=== PATIENT | female | born 1955 | race African-American/Black ===

== ENCOUNTER → 2019-04-24 | Day surgery (SDC) | payer MEDICARE ==
[2019-04-18 15:11] LABS: BASOPHILS # (AUTO) 0.1 (0.0-0.1); BASOPHILS % 0.8 % (0.0-1.0); EOSINOPHILS # (AUTO) 0.1 (0.0-0.4); EOSINOPHILS % 1.7 % (0.0-6.0); HEMATOCRIT 40.6 % (34.2-44.1); HEMOGLOBIN 12.9 g/dL (12.0-16.0); LYMPHOCYTES # (AUTO) 2.6 (1.0-3.2); LYMPHOCYTES % 40.5 % (18.0-39.1); MEAN CORPUSCULAR HEMOGLOBIN 28.9 pg (28-32); MEAN CORPUSCULAR HGB CONC 31.8 g/dL (31-35); MEAN CORPUSCULAR VOLUME 90.8 fL (81-99); MONOCYTES # (AUTO) 0.4 (0.2-0.8); MONOCYTES % 6.2 % (4.4-11.3); NEUTROPHILS # (AUTO) 3.2 (2.1-6.9); NEUTROPHILS % 50.6 % (38.7-80.0); PLATELET COUNT 209 x10e3/uL (140-360); RED BLOOD COUNT 4.47 x10e6/uL (3.6-5.1); RED CELL DISTRIBUTION WIDTH 14.4 % (11.7-14.4)
[~2019-04-24] MED LIST: ADVAIR 250-501 EACH INH; ASPIRIN81 MG PO; ATORVASTATIN CA20 MG PO; FENTANYL CITRATE/PF 100MCG/2 ML INJ ONE; FUROSEMIDE40 MG PO; LIDOCAINE HCL 2% LOCAL INJ 5 ML SDV VIAL INJ ONE; LISINOPRIL2.5 MG PO; METOPROLOL SUCC25 MG PO; MIDAZOLAM HCL 2 MG/2 ML VIAL ONE; MONTELUKAST SOD10 MG PO; OMEPRAZOLE40 MG PO; POTASSIUM CHLO10 ME1 PO; PROPOFOL IV EMULSION 10 MG/ML 20 ML VIAL ONE; PROVENTIL HFA6.7 GM INH
--- OUTSIDE RECORDS SUMMARY | 2019-04-24 05:22 | XMS REPORT ---
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 Allergies, Adverse Reactions, Alerts Allergy Name Allergy Type Status Severity Reaction(s) Onset Date Inactive Date Treating Clinician Comments No Known Allergies DA Active U 2018-06-08 00:00:00 No Known Allergies DA Active U 2015-02-02 00:00:00 Medications This patient has no known medications. Encounters Start Date/Time End Date/Time Encounter Type Admission Type Attending [facility] Facility Care Department Encounter ID 2019-04-29 00:00:00 2019-04-29 00:00:00 Outpatient [facility] [id number] 2019-02-17 09:49:11 2019-02-17 09:49:11 Outpatient [facility] [id number] 2019-02-17 00:00:00 2019-02-17 00:00:00 Outpatient [facility] [id number] 2019-02-07 00:00:00 2019-02-07 00:00:00 Outpatient [facility] [id number] 2019-02-07 00:00:00 2019-02-07 00:00:00 Outpatient [facility] [id number] 2019-01-30 12:26:47 2019-01-30 12:26:47 Outpatient [facility] [id number] 2019-01-27 14:59:13 2019-01-27 14:59:13 Outpatient [facility] [id number] 2019-01-27 14:42:03 2019-01-27 14:42:03 Outpatient [facility] [id number] 2019-01-27 13:23:05 2019-01-27 13:23:05 Outpatient [facility] [id number] 2019-01-27 00:00:00 2019-01-27 00:00:00 Outpatient [facility] [id number] 2018-09-19 00:00:00 2018-09-19 00:00:00 Outpatient [facility] [id number] 2018-09-18 11:07:29 2018-09-18 11:07:29 Outpatient [facility] [id number] 2018-05-21 12:43:03 2018-05-21 12:43:03 Outpatient [facility] [id number] 2018-03-28 15:47:25 2018-03-28 15:47:25 Outpatient [facility] [id number] Results Test Description Test Time Test Comments Text Results Atomic Results Result Comments SCR MAMM BILATERAL JULIA CAD DIGITAL 2019-03-06 15:58:22 - SCR MAMM BILATERAL JULIA CAD DIGITALBILATERAL DIGITAL SCREENING MAMMOGRAM 3D/2D WITH CAD: 02/14/2019CLINICAL: Asymptomatic. Digital breast tomosynthesis was performed in addition to routine CC and MLO views. Current mammographic images were evaluated by either a [employer]u or a [employer] CAD (computer aided detection system). No prior exams are currently available for comparison. The tissue of both breasts is heterogeneously dense. This may lower the sensitivity of mammography. A benign-appearing subcentimeter mass is noted in the left breast upper outer quadrant 11 cm from the nipple.There are benign intramammary nodes in both breasts. There also are benign calcifications in the right breast and minimal vascular calcification in the left breast. No suspicious architectural distortion, malignant type calcification, or lymph node abnormality detected. IMPRESSION: INCOMPLETE ASSESSMENT: ADDITIONAL IMAGING EVALUATION RECOMMENDEDPrior exams are currently unavailable for stability assessment. An addendum will be issued if/when prior outside exams are made available for comparison.Pennding receipt and review of prior outside exams, breast ultrasound is recommended for further evaluation.Wali Nelson M.D. rb/:03/06/2019 15:58:22 Fire Truck Driver: Antonia MACIAS, [facility]-FWletter sent: Additional Imaging Mammogram BI-RADS: 0 Indeterminate SCR MAMM BILATERAL JULIA CAD DIGITAL 2019-03-06 15:58:22 AMENDMENT: 03/27/2019 Wali Nelson M.D. [facility] has obtained the mammograms of 01/27/2019, 11/13/2017, and 07/28/2016 for comparison.Allowing for technical differences, the breasts have not significantly changed.No mammographic evidence of malignancy.Resume screening mammography in February 2020.At the time of the exam, it was not known that the patient had had a mammogram elsewhere on 01/27/2019.Amended BI-RADS: 2 Benign letter sent: Normal Comparison Completed
--- OUTSIDE RECORDS SUMMARY | 2019-04-24 05:23 | XMS REPORT | Encounter Summary ---
Author Organization Unknown Address [address] [place] [id number] Phone [phone] Care Team Providers Care Dust Mixer Name Role Phone Dr. Baldo Guevara 3 [phone] Reason for Visit heartburn/indigestion Instructions 1. Body mass index 40+ - severely obese body mass index: care instructions learning about healthy weight 2. Severe obesity 3. Screening for malignant neoplasm of breast MAMMO, screening, digital, bilateral - PLEASE CALL PATIENT TO SCHEDULE 4. Screening for malignant neoplasm of colon colonoscopy referral 5. Coronary arteriosclerosis in [place] artery furosemide 40 mg tablet potassium chloride ER 10 mEq tablet,extended release(part/cryst) Toprol XL 25 mg tablet,extended release 6. Asthma Advair Diskus 250 mcg-50 mcg/dose powder for inhalation loratadine 10 mg tablet montelukast 10 mg tablet 7. Mixed hyperlipidemia atorvastatin 40 mg tablet lipid panel, serum 8. Benign essential hypertension lisinopril 5 mg tablet CBC w/ auto diff CMP, serum or plasma urinalysis, dipstick TSH, serum or plasma 9. Gastroesophageal reflux disease omeprazole 40 mg capsule,delayed release 10. Impaired fasting glycaemia HbA1c (hemoglobin A1c), blood 11. Disorder of bone and articular cartilage bone density referral - *Please call patient to schedule 12. Blood in urine culture, urine Discussion Note If you do not hear from us in 1 week after the labs are done ,pl call us for results Encouraged to get the Flu vaccine in Feb - Mar 25, 2019. f/u in 1 month Plan of Care Reminders Provider Appointments Return to Office on or around 01/15/2019 Baldo Guevara MD Est Patient 02/26/2019 10:30AM Baldo Guevara MD Est Patient on or around 02/26/2019 Baldo Guevara MD Lab CBC W/ Auto Diff 01/15/2019 [facility] Laboratory CMP, Serum or Plasma 01/15/2019 [facility] Laboratory Urinalysis, Dipstick 01/15/2019 [facility] (p) [place] Lipid Panel, Serum 01/15/2019 [facility] Laboratory TSH, Serum or Plasma 01/15/2019 [facility] Laboratory HbA1C (Hemoglobin a1C), Blood 01/15/2019 [facility] Laboratory Culture, Urine 01/15/2019 [facility] Laboratory Referral Colonoscopy Referral 01/15/2019 [facility] Bone Density Referral 01/15/2019 [facility] Procedures None recorded. Surgeries None recorded. Imaging MAMMO, Screening, Digital, Bilateral 01/15/2019 [facility] Medications Name Start Date Advair Diskus 250 mcg-50 mcg/dose powder for inhalation Inhale 1 puff twice a day by inhalation route for 90 days. Asprin Ec Low Dose 81 mg tablet,delayed release Take 1 tablet every day by oral route. atorvastatin 40 mg tablet Take 1 tablet every day by oral route for 90 days. furosemide 40 mg tablet Take 1 tablet every day by oral route for 90 days. lisinopril 5 mg tablet Take 1 tablet every day by oral route for 90 days. loratadine 10 mg tablet Take 1 tablet every day by oral route for 90 days. montelukast 10 mg tablet Take 1 tablet every day by oral route in the evening for 90 days. omeprazole 40 mg capsule,delayed release Take 1 capsule every day by oral route in the morning for 90 days. potassium chloride ER 10 mEq tablet,extended release(part/cryst) Take 1 tablet twice a day by oral route for 90 days. Proventil HFA 2 puffs a day Toprol XL 25 mg tablet,extended release Take 1 tablet every day by oral route for 90 days. Medications Administered None recorded. Vitals Height Weight BMI Blood Pressure 5 ft 1 in 215 lbs 40.6 kg/m2 126/86 mm[Hg] Lab Results None recorded. 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 01/15/2015 Essential Hypertension Active 01/15/2019 Seasonal Allergic Rhinitis Active 01/15/2019 Procedures Date Name Performed by 06/11/2014 Other Information not available Hysterectomy (Total) Information not available 01/15/2019 MAMMO, Screening, Digital, Bilateral [facility] [id number] [place] [address] ([address]) Vaccine List Vaccine Type Td(adult) unspecified formulation 06/11/1999 Social History Tobacco Smoking Status Never Smoker Past Encounters 01/15/2019 Body Mass Index 40+ - Severely Obese; Severe Obesity; Screening for Malignant Neoplasm of Breast; Screening for Malignant Neoplasm of Colon; Coronary Arteriosclerosis in [place] Artery; Asthma; Mixed Hyperlipidemia; Benign Essential Hypertension; Gastroesophageal Reflux Disease; Impaired Fasting Glycaemia; Disorder of Bone and Articular Cartilage; Blood in Urine Baldo Guevara MD: [facility] [place] [address], Ph. History of Present Illness Note:Here because she has acid reflux , going on x 2 days c/o food in the throat & when she throws up feels better, no nausea, no burping , NO DIARRHEA, no alcohol or smoking. Review of Systems:ROS as noted in the HPI Review of Systems None recorded. Physical Exam General Adult Exam (Female) Reported By: Patient Constitutional: General Appearance: well-developed, morbidly obese. Level of Distress: NAD. Ambulation: ambulating normally Psychiatric: Mental Status: active and alert, normal mood, normal affect. Orientation: to time, to place, to person Head: Head: normocephalic, atraumatic Eyes: Lids and Conjunctivae: non-injected, no discharge, no pallor. Pupils: PERRLA. Corneas: grossly intact. EOM: EOMI. Lens: clear. Sclerae: non-icteric ENMT: Ears: no lesions on external ear, EACs clear, TMs clear. Hearing: no hearing loss. Nose: no lesions on external nose, nares patent, no septal deviation, nasal passages clear, no sinus tenderness, no nasal discharge. Lips, Teeth, and Gums: no mouth or lip ulcers, no bleeding gums, normal dentition. Oropharynx: moist mucous membranes, no erythema, no exudates, tonsils not enlarged Neck: Neck: supple, trachea midline, no masses, FROM. Lymph Nodes: no cervical LAD, no supraclavicular LAD, no axillary LAD. Thyroid: no enlargement, non- tender, no nodules Lungs: Respiratory effort: no dyspnea. Auscultation: breath sounds normal, good air movement, CTA except as noted, no wheezing, no rales/crackles, no rhonchi Cardiovascular: Heart Auscultation: RRR, normal S1, normal S2, no murmurs, no rubs, no gallops Abdomen: Bowel Sounds: normal. Inspection and Palpation: soft, non-distended, no tenderness, no guarding, no rebound tenderness, no masses, no CVA tenderness. Liver: non-tender, no hepatomegaly Musculoskeletal:: Motor Strength and Tone: normal motor strength, normal tone. Joints, Bones, and Muscles: normal movement of all extremities, no bony abnormalities, no contractures, no malalignment, no tenderness. Extremities: no cyanosis, no edema, no varicosities Neurologic: Gait and Station: normal gait, normal station. Cranial Nerves: grossly intact. Sensation: grossly intact Skin: Inspection and palpation: no rash, no lesions, no abnormal nevi, good turgor, no jaundice; hirsute - thick growth of hair on face - mustach & suarez ++. Nails: normal Back: Thoracolumbar Appearance: normal curvature
[2019-04-24 08:30] VITALS: BP 126/73
== END | disposition home or self-care (01) ==
LOC: OR 05:17 → EDBD 07:00
PROVIDERS: ATTEND Internal Medicine Gastroenterology
DX: Z12.11 Encounter for screening for malignant neoplasm of colon (principal); K63.5 Polyp of colon; K64.8 Other hemorrhoids; Z71.3 Dietary counseling and surveillance; J45.909 Unspecified asthma, uncomplicated; I10 Essential (primary) hypertension; I25.10 Atherosclerotic heart disease of native coronary artery without angina pectoris; E66.01 Morbid (severe) obesity due to excess calories; Z01.810 Encounter for preprocedural cardiovascular examination; Z01.812 Encounter for preprocedural laboratory examination; Z79.82 Long term (current) use of aspirin; Z68.41 Body mass index [BMI] 40.0-44.9, adult
CPT/HCPCS: 36415; 45385; 85025; 88305; 93005; J2001; J2250; J2704; J3010; 45378